=== PATIENT | female | born 1945 | race Two or more races ===

== ENCOUNTER 2018-05-07 13:34 | Outpatient (CLI) | payer OTHER | END 2018-05-07 13:43 | disposition home or self-care (01) | LOC: SONOGRAMA 13:34 → EDBD 13:34 → SONOGRAMA 13:43 | DX: R10.84 Generalized abdominal pain (principal) ==

== ENCOUNTER 2018-12-27 14:12 | Outpatient (CLI) | payer OTHER | END 2018-12-27 14:28 | disposition home or self-care (01) | LOC: LAB 14:12 | DX: N20.0 Calculus of kidney (principal); Z51.81 Encounter for therapeutic drug level monitoring; R97.1 Elevated cancer antigen 125 [CA 125]; N85.00 Endometrial hyperplasia, unspecified; D25.9 Leiomyoma of uterus, unspecified ==

== ENCOUNTER 2018-12-30 08:55 | Outpatient (CLI) | payer OTHER | END 2018-12-30 15:57 | disposition home or self-care (01) | LOC: MRI 08:55 | DX: Z12.31 Encounter for screening mammogram for malignant neoplasm of breast (principal); Z87.898 Personal history of other specified conditions; N60.11 Diffuse cystic mastopathy of right breast; N60.12 Diffuse cystic mastopathy of left breast; N85.00 Endometrial hyperplasia, unspecified | CPT/HCPCS: 72197; 76641; 77067; A9575 ==

== ENCOUNTER 2019-01-05 13:55 | Outpatient (CLI) | payer OTHER | END 2019-01-05 14:07 | disposition home or self-care (01) | LOC: NUCLEAR 13:55 | DX: M81.0 Age-related osteoporosis without current pathological fracture (principal) ==

== ENCOUNTER 2019-05-25 10:46 | Emergency (ER) | payer OTHER ==
[~2019-05-25] VITALS: Ht 149.9 cm; Wt 65.8 kg
[2019-05-25] MEDS ORDERED: ENALAPRIL MALEAT5 MG PO (11:14)
[2019-05-25] MEDS ORDERED: ZOCOR20 MG PO (11:14)
[2019-05-25] MEDS ORDERED: LEVO-T75 MCG PO (11:15)
[2019-05-25] MEDS ORDERED: DICLOFENAC SODI50 MG PO (15:00)
== END 2019-05-25 15:38 | disposition home or self-care (01) ==
LOC: ER 10:46
DX: M13.831 Other specified arthritis, right wrist (principal)

== ENCOUNTER 2019-07-13 13:47 | Emergency (ER) | payer OTHER ==
[~2019-07-13] VITALS: Ht 149.9 cm; Wt 67.6 kg
[~2019-07-13 13:47] MED LIST: DICLOFENAC SODI50 MG PO; ENALAPRIL MALEAT5 MG PO; LEVO-T75 MCG PO; ZOCOR20 MG PO
== END 2019-07-13 20:44 | disposition home or self-care (01) ==
LOC: ER 13:47
DX: K66.0 Peritoneal adhesions (postprocedural) (postinfection) (principal)

== ENCOUNTER 2025-01-05 13:04 | Outpatient (CLI) | payer OTHER | END 2025-01-05 13:05 | disposition home or self-care (01) | LOC: NUCLEAR 13:04 | PROVIDERS: ATTEND Family Medicine Adult Medicine | DX: M81.0 Age-related osteoporosis without current pathological fracture (principal) ==

== ENCOUNTER 2025-04-27 13:54 | Emergency (ER) | payer OTHER ==
[~2025-04-27] VITALS: Ht 152.4 cm; Wt 57.6 kg
[2025-04-27 14:07] VITALS: BP 113/67; O2SAT 96
[2025-04-27] MEDS ORDERED: LEVO-T25 MCG (14:08)
[2025-04-27] MEDS ORDERED: ATORVASTATIN CA10 MG PO (14:08)
[2025-04-27] MEDS ORDERED: 0.9 % SODIUM CHLORIDE 1,000 ML IV SCH (14:19)
[2025-04-27 14:53] LABS: BASO % 0.2 % (0.1-1.2); EOS # 0.17 (0.04-0.54); EOS % 1.6 % (0.7-7.0); LYMPH # 1.65 (1.18-3.74); LYMPH % 15.8 % (19.3-53.1); MEAN PLATELET VOLUME 9.70 fl (9.4-12.4); MONO # 0.75 (0.24-0.82); MONO % 7.2 % (4.7-12.5); NEUT # 7.79 (1.56-6.13); NEUT % 74.7 % (34.0-71.1); RED CELL DISTRIBUTION WIDTH 12.6 % (11.6-14.4)
[2025-04-27 15:22] LABS: BUN CREA RATIO 19.0 (7.0-25.0); CREATININE SERUM 0.85 mg/dL (0.55-1.02); GFR 64.52; GLUCOSE FASTING 131.0 mg/dL (65-100)
[2025-04-27 15:50] LABS: OSMOLALITY SERUM 281.0 MOSM/KG (275-295)
== END 2025-04-27 17:10 | disposition home or self-care (01) ==
LOC: ER
PROVIDERS: Emergency Medicine
DX: R42 Dizziness and giddiness (principal); I10 Essential (primary) hypertension; E03.8 Other specified hypothyroidism
CPT/HCPCS: 36415; 96365; 96366; 99282; J7030

== ENCOUNTER 2025-04-28 11:02 | Emergency (ER) | payer OTHER ==
[~2025-04-28] VITALS: Ht 152.4 cm; Wt 57.6 kg
[~2025-04-28 11:02] MED LIST changes: +ATORVASTATIN CA10 MG PO; +LEVO-T25 MCG
[2025-04-28] MEDS ORDERED: MECLIZINE HCL 25 MG TABLET PO STA (11:46)
[2025-04-28 14:05] LABS: URINE APPEARANCE Clear; URINE BILIRRUBIN Negative (NEGATIVE); URINE BLOOD Negative; URINE COLOR Yellow; URINE GLUCOSE Negative (NEGATIVE); URINE KETONE 15 (NEGATIVE); URINE LEUKOCYTE Negative; URINE NITRATE Negative; URINE PROTEIN Negative (NEGATIVE); URINE UROBILINOGEN 0.2 E.U./dl
[2025-04-28 14:06] LABS: BASO % 0.2 % (0.1-1.2); EOS # 0.07 (0.04-0.54); EOS % 0.8 % (0.7-7.0); LYMPH # 2.23 (1.18-3.74); LYMPH % 24.6 % (19.3-53.1); MEAN PLATELET VOLUME 9.80 fl (9.4-12.4); MONO # 0.66 (0.24-0.82); MONO % 7.3 % (4.7-12.5); NEUT # 6.05 (1.56-6.13); NEUT % 66.9 % (34.0-71.1); RED CELL DISTRIBUTION WIDTH 11.9 % (11.6-14.4)
[2025-04-28 14:09] LABS: URINE BACTERIA 103.1 uL (0.0-1933); URINE RBC 7.7 uL (0.0-20.8)
[2025-04-28 14:44] LABS: URINE CAST 0.00 uL (0.0-1.40); URINE EPITHELIAL CELLS 0.9 uL (0.0-38.8); URINE WBC 0.7 uL (0.0-23.2)
[2025-04-28 14:53] LABS: ALT/SGPT 16.0 U/L (12-78); AST/SGOT 19.0 U/L (15-37); BILIRUBIN TOTAL 0.69 mg/dL (0.3-1.2); BUN CREA RATIO 15.0 (7.0-25.0); CREATININE SERUM 0.6 mg/dL (0.55-1.02); GFR 96.43; GLOBULINA 3.2 G/DL (2.4-3.5); GLUCOSE FASTING 107.0 mg/dL (65-100); OSMOLALITY SERUM 241.0 MOSM/KG (275-295)
== END 2025-04-28 15:21 | disposition home or self-care (01) ==
LOC: ER 11:02
PROVIDERS: General Practice
DX: R25.9 Unspecified abnormal involuntary movements (principal); J22 Unspecified acute lower respiratory infection